=== PATIENT | female | born 1995 | race Caucasian/White ===

== ENCOUNTER → 2020-07-30 08:00 | Outpatient (CLI) | payer OTHER | END | disposition home or self-care (01) | LOC: LAB 08:00 → ADM 10:45 → EDSTATUS 08-06 10:45 → CIR.AMB 08-06 10:45 | PROVIDERS: ATTEND Obstetrics & Gynecology Obstetrics | DX: U07.1 COVID-19 (principal); N93.9 Abnormal uterine and vaginal bleeding, unspecified ==

== ENCOUNTER 2023-08-27 07:21 | Inpatient (IN) | payer OTHER ==
[~2023-08-27] VITALS: Ht 165.1 cm; Wt 3.2 kg
[2023-08-27] MEDS ORDERED: PRENATAL CAPLE1 EAC1 PO (07:27)
[2023-08-27 08:36] LABS: PH,URINE 6.5 (5.0-8.0); URINE APPEARANCE Clear; URINE BILIRRUBIN Negative (NEGATIVE); URINE BLOOD Moderate; URINE COLOR Yellow; URINE GLUCOSE Negative (NEGATIVE); URINE LEUKOCYTE Trace; URINE NITRATE Negative; URINE PROTEIN Trace (NEGATIVE); URINE UROBILINOGEN 0.2 E.U./dl
[2023-08-27 08:39] LABS: URINE BACTERIA 699.2 uL (0.0-1933); URINE EPITHELIAL CELLS 28.7 uL (0.0-38.8); URINE RBC 32.7 uL (0.0-20.8); URINE WBC 26.7 uL (0.0-23.2)
[2023-08-27 08:47] LABS: HEMATOCRIT 38.2 % (36.0-45.00); HEMOGLOBIN 12.8 g/dL (12.0-15.00); MEAN CELL VOLUME 94.9 fL (80.00-100.00); MEAN CORPUSCULAR HEMOGLOBIN 31.7 pg (27.00-32.0); MEAN CORPUSCULAR HGB CONC 33.4 g/dl (32.0-36.0); PLATELET COUNT 225 K/uL (150-450); RED BLOOD COUNT 4.03 M/uL (4.00-6.00); RED CELL DISTRIBUTION WIDTH 13.7 % (11.5-14.5)
[2023-08-27 08:56] LABS: INR < 0.93; PROTHROMBIN TIME 9.8 SECONDS (9.0-11.5)
[2023-08-27 09:40] LABS: ALBUMIN 2.2 gm/dL (3.4-5.0); BILIRUBIN TOTAL 0.28 mg/dL (0.3-1.2); CALCIUM 8.4 mg/dL (8.5-10.1); CREATININE SERUM 0.51 mg/dL (0.55-1.02); GFR 142.57; GLOBULINA 3.7 G/DL (2.4-3.5); POTASSIUM 3.78 mEq/L (3.5-5.1); TOTAL PROTEIN 5.9 gm/dL (6.4-8.2)
[2023-08-27 15:32] LABS: ABG PH 7.297 (7.35-7.45); ABG pCO2 46.8 mmHg (35-45)
[2023-08-27 15:33] LABS: ABG PO2 23.1 mmHg (80-100); BASE EXCESS -4.3 mmol/l; BICARBONATE 22.4 mmol/l (23-25); SaO2 32.2 %; Tco2 23.8 mmol/l; o2 21 %
[2023-08-27 23:16] LABS: RH POSITIVE
[2023-08-29 10:08] LABS: HEMATOCRIT 29.1 % (36.0-45.00); MEAN CELL VOLUME 94.5 fL (80.00-100.00); MEAN CORPUSCULAR HGB CONC 34.4 g/dl (32.0-36.0); PLATELET COUNT 216 K/uL (150-450); RED BLOOD COUNT 3.08 M/uL (4.00-6.00); RED CELL DISTRIBUTION WIDTH 14.2 % (11.5-14.5)
[2023-08-29 10:18] LABS: MEAN CORPUSCULAR HEMOGLOBIN 32.4 pg (27.00-32.0)
[2023-08-29 10:38] LABS: ALBUMIN 2.2 gm/dL (3.4-5.0); BILIRUBIN TOTAL 0.24 mg/dL (0.3-1.2); CALCIUM 8.5 mg/dL (8.5-10.1); CREATININE SERUM 0.57 mg/dL (0.55-1.02); GFR 125.4; GLOBULINA 3.7 G/DL (2.4-3.5); POTASSIUM 3.85 mEq/L (3.5-5.1); TOTAL PROTEIN 5.9 gm/dL (6.4-8.2)
[2023-08-30 04:59] LABS: ABG PO2 104.1 mmHg (80-100); ABG pCO2 31.1 mmHg (35-45); BASE EXCESS -1.7 mmol/l; BICARBONATE 21.1 mmol/l (23-25); SaO2 98.2 %; Tco2 22.1 mmol/l
[2023-08-30 06:46] LABS: o2 21 %
[2023-08-30 06:47] LABS: allen test SATISFACTORY; puncture site RADIAL LEFT
[2023-08-30 07:01] LABS: HEMATOCRIT 24.6 % (36.0-45.00); MEAN CELL VOLUME 93.6 fL (80.00-100.00); MEAN CORPUSCULAR HGB CONC 35.6 g/dl (32.0-36.0); PLATELET COUNT 211 K/uL (150-450); RED BLOOD COUNT 2.63 M/uL (4.00-6.00); RED CELL DISTRIBUTION WIDTH 13.9 % (11.5-14.5)
[2023-08-30 07:04] LABS: HEMOGLOBIN 8.8 g/dL (12.0-15.00); MEAN CORPUSCULAR HEMOGLOBIN 33.4 pg (27.00-32.0)
== END 2023-08-31 16:37 | disposition home or self-care (01) | DRG 784 ==
LOC: LDR 07:21 → OB/GYN 07:21
PROVIDERS: Internal Medicine; Obstetrics & Gynecology; ADMIT Obstetrics & Gynecology Obstetrics; ATTEND Obstetrics & Gynecology Obstetrics
PROC: 0UB70ZZ Excision of Bilateral Fallopian Tubes, Open Approach (ICD-10-PCS; 2023-08-27)
PROC: 4A1HXCZ Monitoring of Products of Conception, Cardiac Rate, External Approach (ICD-10-PCS; 2023-08-27)
PROC: 10D00Z1 Extraction of Products of Conception, Low, Open Approach (ICD-10-PCS; principal; 2023-08-27 11:00)
PROC: B54DZZZ Ultrasonography of Bilateral Lower Extremity Veins (ICD-10-PCS; 2023-08-30)
PROC: BU4CZZZ Ultrasonography of Uterus and Ovaries (ICD-10-PCS; 2023-08-30)
DX: O34.211 Maternal care for low transverse scar from previous cesarean delivery (principal); D62 Acute posthemorrhagic anemia; O99.02 Anemia complicating childbirth; Z3A.38 38 weeks gestation of pregnancy; Z30.2 Encounter for sterilization; Z37.0 Single live birth; Z20.822 Contact with and (suspected) exposure to COVID-19; O75.4 Other complications of obstetric surgery and procedures; R00.0 Tachycardia, unspecified